=== PATIENT | female | born 1940 | race African-American/Black ===

== ENCOUNTER 2020-08-11 17:18 | Inpatient (IN) | payer MEDICARE ==
[2020-08-11] MEDS ORDERED: Diltiazem 125 MG/25 ML ONE (17:31)
[2020-08-11 18:00] LABS: #Lymphocytes 0.6 thou/uL (1.20-3.40); #Monocytes 0.5 thou/uL (0.11-0.59); #Neutrophils 4.8 thou/uL (1.40-6.50); %Basophils 0.3 % (0.0-1.0); %Eosinophils 0.2 % (0.0-10.0); %Lymphocytes 10.5 % (21.0-51.0); Hemoglobin 13.1 g/dL (12.0-16.0); Mean Corpuscular HGB CONC 32.9 g/dL (32.0-36.0); Mean Corpuscular Hemoglobin 31.2 pg (27.0-31.0); Mean Corpuscular Volume 94.8 fL (78.0-98.0); Mean Platelet Volume 8.8 fL (7.4-10.4); Platelet Count 231 thou/uL (130-400); RBC Distribution Width 14.6 % (11.5-14.5); Red Blood Cell (RBC) Count 4.21 mill/uL (4.20-5.40)
[2020-08-11 18:04] LABS: PTT 32.1 sec (22.9-36.1); Prothrombin Time 13.6 sec (12.0-14.7)
[2020-08-11 18:13] LABS: D-Dimer Test 10.26 *mcg/mL (0.27-0.43)
[2020-08-11] MEDS ORDERED: Adenosine 6 MG/2 ML VIAL ONE (18:14)
[2020-08-11 18:23] LABS: ALT (SGPT) 27 U/L (8-55); AST (SGOT) 61 U/L (5-34); Albumin 3.7 g/dL (3.4-4.8); Alkaline Phosphatase 62 U/L (40-110); Anion Gap 21 mmol/L (10-20); BUN (Urea Nitrogen) 28 mg/dL (9.8-20.1); Bilirubin, Total 0.7 mg/dL (0.2-1.2); Calc. Creatinine Clearance 0 mL/min (70-130); Calcium 9.1 mg/dL (7.8-10.44); Carbon Dioxide 23 mmol/L (23-31); Chloride 101 mmol/L (98-107); Glucose 97 mg/dL (83-110); Potassium 3.9 mmol/L (3.5-5.1); Protein, Total 7.7 g/dL (6.0-8.3); Sodium 141 mmol/L (136-145)
[2020-08-11 19:26] LABS: Bacteria/HPF 2+ HPF (None Seen); Bilirubin Negative (Negative); Blood, Urine 2+ (Negative); Clarity Turbid (Clear); Glucose, Urine (Dipstick) Normal (Negative); Ketone, Urine Negative (Negative); Leukocyte 250 Leu/uL (Negative); Nitrite Negative (Negative); Protein, Urine (Dipstick) 100 mg/dL (Neg-Trace); RBC/HPF 0-3 HPF (0-3); Specific Gravity, Urine 1.014 (1.002-1.036); Squamous Epithelial 0-3 HPF (0-3); WBC/HPF 21-50 HPF (0-3)
[2020-08-11] MEDS ORDERED: Enoxaparin Sodium 60 MG/0.6 ML SYRINGE ONE (19:27)
--- NOTE | 2020-08-11 19:28 | RAD ---
CHEST ONE VIEW: History: Fall Comparison: None FINDINGS: There is dense consolidation in the left lung base. There are few peripheral opacities throughout the lungs. Likely imposition of bowel between the right hemidiaphragm and the liver although slightly ob scured due to overlying defibrillator pad. No acute osseous abnormality. IMPRESSION: 1. Findings concerning for left basilar pneumonia or aspiration. 2. Peripheral opacities in the right upper lobe and left lower lobe could reflect scar or Covid 19 pn eumonia. Follow up recommended. POS: HOME
[2020-08-11] MEDS ORDERED: Amiodarone 150 MG, Admixture Fee 1 EACH in Dextrose 5% in Water 100 ML IVPB SCH (19:30)
[2020-08-11] MEDS ORDERED: Amiodarone 450 MG in Dextrose 5% in Water 250 ML IVPB SCH (19:45)
--- NOTE | 2020-08-11 20:05 | PDOC.HHP ---
Hospitalist HPI - History of Present Illness Generalized weakness, fall History of Present Illness: This is an 80-year-old female patient with a history of Asthma, glaucoma and remote cancer of left breast who was brought in by EMS on account of generalized weakness. Patient lives alone. About a week ago she was out to take her trash when a big yesenia of wind literally carried her and have been as a result of which she fell. She managed to drag herself back to her room but ever since she has been lying on the floor generally weak and unable to move around. She knows that she that her important stuff around her so she does not have to take long steps. She notes having pain in her left knee and right ankle from the fall. She has also had worsening cough productive however she does not bring it upnotes no cough. She denies any fever. She notes mild occasional headaches, no chest pain abdominal pain diarrhea constipation or dysuria. She does not recall hitting her head when she fell and does not have any focal weakness. Today her niece came to find her on the floor and activated EMS. EMS noted a blood pressure of 114/82, pulse of 173 and A. fib with RVR. She was brought into the ED for further evaluation. At presentation BP was 136/85, pulse was 161 temperature 99.7 saturating 94 on 2 L. She was noted to be in atrial flutter. Labs showed UA with 2+ bacteria 250 leukocytes 2+ blood with 21-50 WBC per high-power field, BMP showed potassium of 3.9, creatinine 1.88 with no baseline of reference. D-dimer was elevated at 10.26, CBC was essentially within normal limits. Chest x-ray showed findings concerning for left basilar pneumonia possibly aspiration. Also had peripheral opacities in the right upper lobe and left lower lobe which were concerning for possible COVID-19. She was started on Lovenox full dose due to concerns of PE. CTA was not done due to concerns of poor renal function. She also received Cardizem bolus and drip and also push of adenosine. Her rhythm converted to sinus tachycardia in the 100samiodarone was held. This was discussed with Dr. Christopher. Hospitalist team was consulted for admission. Hospitalist ROS - Review of Systems Constitutional: reports: malaise. denies: chills, sweats Respiratory: reports: cough, shortness of breath. denies: hemoptysis, SOB with excertion, pleuritic pain Cardiovascular: reports: palpitations. denies: chest pain, orthopnea, paroxysmal noc. dyspnea, edema Gastrointestinal: denies: nausea, vomiting, abdominal pain, diarrhea Genitourinary: denies: dysuria, frequency, incontinence, hematuria Musculoskeletal: reports: leg pain. denies: neck pain, shoulder pain, back pain, foot pain Skin: denies: rash, lesions Neurological: denies: weakness, numbness, incoordination, change in speech, confusion - Medication Medications: Medications: Spironolactone Allergies: Penicillin, streptomycin Hospitalist History - Past Medical History Other Medical History: Prediabetes, asthma - Past Surgical History Past Surgical History: reports: Hysterectomy - Family History Family History: reports: cardiac disorder - Social History Smoking Status: Former smoker Alcohol: reports: None Living Situation: Alone Activity level: independent ambulation - Exam General Appearance: awake alert Eye: PERRL, anicteric sclera ENT: normocephalic atraumatic Heart: RRR, no murmur, no gallops, no rubs Respiratory - other findings: Reduced air entry bilaterally. Occasional wheeze Extremities: no cyanosis, no clubbing, no edema Neurological: cranial nerve grossly intact, no focal deficits Psychiatric: normal affect, normal behavior, A&O x 3 Hospitalist Results - Labs Result Diagrams: 08/12/20 01:43 08/13/20 04:38 Lab results: WBC 6.0 thou/uL (4.8-10.8) 08/11/20 17:37 Hgb 13.1 g/dL (12.0-16.0) 08/11/20 17:37 Hct 39.9 % (36.0-47.0) 08/11/20 17:37 MCV 94.8 fL (78.0-98.0) 08/11/20 17:37 Plt Count 231 thou/uL (130-400) 08/11/20 17:37 Neutrophils % 80.0 % (42.0-75.0) H 08/11/20 17:37 Sodium 141 mmol/L (136-145) 08/11/20 17:37 Potassium 3.9 mmol/L (3.5-5.1) 08/11/20 17:37 Chloride 101 mmol/L (98-107) 08/11/20 17:37 Carbon Dioxide 23 mmol/L (23-31) 08/11/20 17:37 BUN 28 mg/dL (9.8-20.1) H 08/11/20 17:37 Creatinine 1.88 mg/dL (0.6-1.1) H 08/11/20 17:37 Glucose 97 mg/dL (83-110) 08/11/20 17:37 Calcium 9.1 mg/dL (7.8-10.44) 08/11/20 17:37 Total Bilirubin 0.7 mg/dL (0.2-1.2) 08/11/20 17:37 AST 61 U/L (5-34) H 08/11/20 17:37 ALT 27 U/L (8-55) 08/11/20 17:37 Alkaline Phosphatase 62 U/L (40-110) 08/11/20 17:37 B-Natriuretic Peptide Less than 10.0 pg/mL (0-100) 08/11/20 17:37 Serum Total Protein 7.7 g/dL (6.0-8.3) 08/11/20 17:37 Albumin 3.7 g/dL (3.4-4.8) 08/11/20 17:37 Urine Ketones Negative mg/dL (Negative) 08/11/20 19:11 Urine Blood 2+ (Negative) A 08/11/20 19:11 Urine Nitrite Negative (Negative) 08/11/20 19:11 Ur Leukocyte Esterase 250 Evelyn/uL (Negative) A 08/11/20 19:11 Urine RBC 0-3 HPF (0-3) 08/11/20 19:11 Urine WBC 21-50 HPF (0-3) A 08/11/20 19:11 Ur Squamous Epith Cells 0-3 HPF (0-3) 08/11/20 19:11 Urine Bacteria 2+ HPF (None Seen) A 08/11/20 19:11 Hospitalist H&P A/P - Plan Plan: This is an 80-year-old female with a history of diabetes mellitus, asthma who presents on account of generalized weakness after a fall a week ago. She has A. fib and a flutter on EKG and monitoring currently converted to sinus tachycardia with heart rate in the 90s 100s. She will be admitted for monitoring and further cardiology evaluation in the a.m. Atrial flutter/fibrillation Unclear etiology Possible concerns of PE and to rule out Covid pneumonia. Troponin elevated however this likely due to demand D-dimer significantly elevated Currently out of flutter and in sinus tachycardia after diltiazem bolus and dripwe will continue monitoring and holding of amiodarone for now. Cardiology evaluation in a.m. Bilateral pneumonia Concerns for Covid/aspiration Started on metronidazole and Levaquin for now. Has penicillin and streptomycin allergy Levaquin changed to doxycycline given her arrhythmias and age Follow-up on Covid results As needed oxygen Consults ID from Possible pulmonary embolism Started on therapeutic Lovenox Poor renal functionCTA could not be done We will do perfusion scan in a.m. Continue Lovenox for now. Type II NSTEMI Troponin elevated likely demand We will trend Covered on Lovenox for now Appreciate cardiology input. SATURNINO Creatinine elevated at 1.88 Unclear etiologypossible rhabdomyolysis Recheck CK IV fluids and possible prerenal Monitor BMP Fall This was mechanical no focal deficits and was a week ago. Fall precautions however PT evaluation in a.m. Left knee pain From traumatic fall X-ray ordered Right ankle pain X-ray ankle VT prophylaxistherapeutic on Lovenox CODE STATUSfull code Dispositionpending PT evaluation. She lives alone and may need placement
--- NOTE | 2020-08-11 21:10 | RAD ---
LEFT KNEE FOUR VIEWS: History: Fall Comparison: None FINDINGS: No significant joint effusion. Moderate chondrocalcinosis of the menisci. Mild vascular calcification s. IMPRESSION: Chondrocalcinosis and mild degenerative changes. No acute osseous abnormality. POS: HOME
--- NOTE | 2020-08-11 21:11 | RAD ---
RIGHT ANKLE THREE VIEWS: History: Fall Comparison: None FINDINGS: Likely old distal fibular injury which is well ossified and corticated. No acute displaced fracture o r malalignment. No osteochondral defect of the talar dome. IMPRESSION: No acute osseous abnormality. POS: HOME
[2020-08-11 21:22] LABS: Troponin I 0.134 ng/mL (< 0.028)
[2020-08-11] MEDS ORDERED: metroNIDAZOLE 500 MG in Premix Bag 1 BAG IVPB SCH (22:00)
[2020-08-11] MEDS ORDERED: Sodium Chloride 0.9% 1,000 ML IV SCH (22:00)
[2020-08-11 22:14] LABS: SARS-CoV-2 NAA Rapid Test DETECTED (NotDetected)
[2020-08-12] MEDS: Sodium Chloride 0.9% 1,000 ML IV SCH ×2 (01:18→09:52)
[2020-08-12 02:23] LABS: Band 8 % (5-11); Hemoglobin 12.1 g/dL (12.0-16.0); Lymphocytes 17 % (21-51); MDiff Complete? YES; Mean Corpuscular HGB CONC 33.3 g/dL (32.0-36.0); Mean Corpuscular Hemoglobin 31.4 pg (27.0-31.0); Mean Corpuscular Volume 94.4 fL (78.0-98.0); Mean Platelet Volume 8.6 fL (7.4-10.4); Monocytes 6 % (0-10); Myelocyte 1 % (0-0); Neutrophil 68 % (42-75); Platelet Count 201 thou/uL (130-400); RBC Distribution Width 14.4 % (11.5-14.5); Red Blood Cell (RBC) Count 3.84 mill/uL (4.20-5.40); White Blood Cell (WBC) Count 3.7 thou/uL (4.8-10.8)
[2020-08-12 02:25] VITALS: BMI 23.3
[2020-08-12 02:26] LABS: Anion Gap 17 mmol/L (10-20); BUN (Urea Nitrogen) 28 mg/dL (9.8-20.1); CK (CPK) 1436 U/L (29-168); Calc. Creatinine Clearance 29 mL/min (70-130); Calcium 8.7 mg/dL (7.8-10.44); Carbon Dioxide 22 mmol/L (23-31); Cardiac Risk 4.2 (Less than 4.5); Chloride 105 mmol/L (98-107); Cholesterol 130 mg/dl (< 200 Desired); Glucose 115 mg/dL (83-110); HDL Cholesterol 31 mg/dL (>60 Neg Risk); LDL Cholesterol, Calculated 75 mg/dL; Potassium 3.3 mmol/L (3.5-5.1); Sodium 141 mmol/L (136-145); Triglycerides 120 mg/dL (Less than 150); Troponin I 0.121 ng/mL (< 0.028)
[2020-08-12] MEDS ORDERED: metroNIDAZOLE 500 MG in Premix Bag 1 BAG IVPB SCH (03:00)
[2020-08-12 07:37] LABS: Troponin I 0.082 ng/mL (< 0.028)
[2020-08-12] MEDS: metroNIDAZOLE 500 MG in Premix Bag 1 BAG IVPB SCH ×2 (09:52→18:34)
[2020-08-12] MEDS: Acetaminophen 325 MG TAB PO PRN ×2 (10:15→16:15)
--- NOTE | 2020-08-12 11:56 | PDOC.HOSPP ---
- Subjective Encounter Date: 08/12/20 Encounter Time: 11:30 Subjective: Patient examined today. Denies any new complaints. Would like to eat as ED made her NPO pending cardiology consult. - Objective Vital Signs & Weight: Vital Signs (12 hours) Temp Pulse Resp BP BP Pulse Ox 08/12/20 07:47 98 08/12/20 05:00 98.6 F 95 24 H 126/78 98 08/12/20 04:41 98.6 F 95 24 H 126/78 98 Weight Admit Weight 65.544 kg Weight 65.544 kg Result Diagrams: 08/12/20 01:43 08/12/20 01:43 Hospitalist ROS - Review of Systems Constitutional: reports: chills, malaise Eyes: denies: pain, vision change, conjunctivae inflammation, eyelid inflammation, redness, other ENT: denies: ear pain, ear discharge, nose pain, nose discharge, nose congestion, mouth pain, mouth swelling, throat pain, throat swelling, other Respiratory: reports: cough, shortness of breath, SOB with excertion Cardiovascular: denies: chest pain, palpitations, orthopnea, paroxysmal noc. dyspnea, edema, light headedness, other Gastrointestinal: denies: nausea, vomiting, abdominal pain, diarrhea, constipation, melena, hematochezia, other Genitourinary: denies: dysuria, frequency, incontinence, hematuria, retention, other Musculoskeletal: denies: neck pain, shoulder pain, arm pain, back pain, hand pain, leg pain, foot pain, other Skin: denies: rash, lesions, karishma, bruising, other Neurological: reports: weakness - Medication Medications: Active Medications Generic Name Dose Route Start Last Admin Trade Name Freq PRN Reason Stop Dose Admin Acetaminophen 650 mg 08/11/20 20:19 08/12/20 10:15 Acetaminophen 325 Mg Tab PO 650 mg Q4H PRN Administration Headache/Fever/Mild Pain (1-3) Sodium Chloride 1,000 mls @ 100 mls/hr 08/11/20 23:15 08/12/20 09:52 Normal Saline 0.9% IV 1,000 mls .Q10H KEISHA Administration Metronidazole 500 mg/ Device 100 mls @ 100 mls/hr 08/12/20 10:00 08/12/20 09:52 IVPB 100 mls 0200,1000,1800 KEISHA Administration - Exam General Appearance: awake alert, ill appearing Eye: PERRL, anicteric sclera ENT: normocephalic atraumatic, dry oral mucosa Neck: supple, no lymphadenopathy Heart: normal peripheral pulses Respiratory: normal chest expansion Gastrointestinal: soft, non-tender Extremities: no edema Skin: normal turgor Neurological - other findings: generalized weakness/fatigue Musculoskeletal: generalized weakness Psychiatric: normal affect, A&O x 3 Hosp A/P (1) Pneumonia due to COVID-19 virus Code(s): U07.1 - COVID-19; J12.89 - OTHER VIRAL PNEUMONIA Status: Acute (2) Atrial fibrillation/flutter Code(s): I48.91 - UNSPECIFIED ATRIAL FIBRILLATION; I48.92 - UNSPECIFIED ATRIAL FLUTTER Status: Acute (3) D-dimer, elevated Code(s): R79.89 - OTHER SPECIFIED ABNORMAL FINDINGS OF BLOOD CHEMISTRY Status: Acute (4) NSTEMI (non-ST elevated myocardial infarction) Code(s): I21.4 - NON-ST ELEVATION (NSTEMI) MYOCARDIAL INFARCTION Status: Acute (5) SATURNINO (acute kidney injury) Code(s): N17.9 - ACUTE KIDNEY FAILURE, UNSPECIFIED Status: Acute (6) Rhabdomyolysis Code(s): M62.82 - RHABDOMYOLYSIS Status: Acute (7) Fall Code(s): W19.XXXA - UNSPECIFIED FALL, INITIAL ENCOUNTER Status: Acute - Plan continue antibiotics, PT/OT, sr. social media & mobile manager, DVT proph w/lovenox, GI proph #Covid Pneumonia Continue Doxy and Flagyl O2 as needed to keep O2 Sats above 92 ID consult added #Aflutter/Afib + NSTEMI Dr. Brown called patient today Orders placed Await report Patient converted to sinus tachycardia last night #Elevated DDimer in the context of Covid pneumonia Was given Lovenox last night (1mg/kg) Started on Eliquis today Was called from Nuc Med who stated patient would not get much benefit from Lung Perfusion test Will continue Eliquis and monitor # SATURNINO and elevated CK IV fluids and will recheck CK Hold nephrotoxic meds DVT prevention with eliquis; PUD prevention with pepcid. Case will be discussed with Dr. Kaplan- attending
--- NOTE | 2020-08-12 11:59 | CON ---
DATE OF CONSULTATION: HISTORY OF PRESENT ILLNESS: Patient is an 80-year-old woman who had a fall and was noted to be in a rapid irregular heart rhythm. The patient has no previous cardiac history. The patient was in usual state of health when she suddenly got weak, and had a fall. She presented to emergency room and noted to have a rapid irregular heart rhythm. The patient denied having any palpitations. The patient denies having any chest pain or dyspnea. The patient states she was extremely weak. The patient denied any fevers or chills. PAST MEDICAL HISTORY: 1. Breast carcinoma. 2. Diabetes mellitus. 3. Asthma. 4. Prediabetes. PAST SURGICAL HISTORY: Hysterectomy. SOCIAL HISTORY: Nonsmoker. ALLERGIES: PENICILLIN AND STREPTOMYCIN. MEDICATIONS: 1. Synthroid 50 mcg daily. 2. Metformin 500 daily. 3. Spironolactone 25 daily. FAMILY HISTORY: There is a positive family history of coronary artery disease. REVIEW OF SYSTEMS: Ten-point system otherwise unremarkable. No history of easy bruising or bleeding. PHYSICAL EXAMINATION: VITAL SIGNS: Blood pressure was 126/78, heart rate was 98. Physical examination was deferred due to COVID. LABORATORY RESULTS: White blood cell count 3.7, hemoglobin 12.1, hematocrit 36.2, platelets are 201. Sodium was 141, potassium 3.3, chloride 105, bicarbonate 22, BUN 28, creatinine 1.56. Troponin was 0.12. CPK was 1436. EKG revealed atrial flutter with 2:1 conduction. EKG revealed sinus tachycardia, otherwise normal ECG. IMPRESSION AND PLAN: 1. New-onset atrial flutter. 2. Coronavirus disease positive. 3. Diabetes mellitus. 4. Asthma. 5. Rhabdomyolysis. The patient presents after a prolonged fall and developed rhabdomyolysis. She was noted to be in rapid atrial flutter. The patient converted to sinus rhythm. From a cardiac standpoint with her history of asthma, Iwould recommend Cardizem . The patient has a CHADS-VASc score of 4. She needs to be on long-term anticoagulation. We will start low-dose Eliquis. We will follow this patient with you through her hospitalization. Job ID: [id number] MTDD
[2020-08-12] MEDS ORDERED: Dexamethasone 4 MG TAB PO SCH (15:15)
[2020-08-12] MEDS: Famotidine 20 MG TAB PO SCH (20:50)
[2020-08-12] MEDS: Apixaban 2.5 MG TAB PO SCH (20:50)
--- NOTE | 2020-08-12 20:56 | CON ---
DATE OF CONSULTATION: 08/12/2020 REASON FOR CONSULTATION: COVID-19. HISTORY OF PRESENT ILLNESS: An 80-year-old who has a history of asthma and breast cancer in remission, who reportedly had been having a lot of coughing for the past 2 or 3 weeks that she ascribed to a "cold" [place] the trash can out and because of the wind, she fell and the trash can fell on top of her and she dragged herself back into the house and reportedly could not get up and stayed there for 2 weeks, which I find hard to believe. She was drinking from vials of water that she has around the house and I do not know what she was eating, but eventually her niece came to visit and called the EMS and brought her to the emergency room. In the emergency room, they reported that she was having dizziness and palpitations and tachycardia. The history is a bit different than what she just told me compared with what the ER physician documented. So initial findings are blood pressure 130/80, heart rate 160 initially and then 100, temperature 99.7, O2 saturation 94%. The exam was not particularly remarkable except for tachycardia. The lung exam was described as normal. The EKG showed atrial flutter with variable AV block and tachycardia. Other findings, white cell count 6.0, hemoglobin 13, platelets 231, 80% neutrophils. INR 1.0. Sodium 141, creatinine 1.8, AST 61. CK was 1600. Troponin 0.134. Albumin 3.7. TSH 3.5. Urinalysis with 21 to 50 wbc's. SARS-CoV-2 PCR positive. Chest x-ray with bilateral infiltrates. The patient has been given Decadron, Eliquis, doxycycline, and Flagyl. Currently, Ms. Serrano is a little bit apprehensive, but have been told to have COVID. No headaches, still coughing intermittently. No dyspnea. No abdominal pain or diarrhea. No genitourinary symptoms. No neurological symptoms. PAST MEDICAL HISTORY: Asthma, breast cancer in remission. PAST SURGICAL HISTORY: Hysterectomy, breast cancer surgery. MEDICATIONS: 1. Eliquis. 2. Decadron. 3. Doxycycline. 4. Flagyl. FAMILY HISTORY: Noncontributory. ALLERGIES: PENICILLIN, STREPTOMYCIN. PHYSICAL EXAMINATION: VITAL SIGNS: Temperature max 98.6, blood pressure 120/70, heart rate 95, breathing 24 times a minute, O2 saturation 98% on 2 L. I decreased or turned off her oxygen supplementation and she kept her O2 saturations anywhere from 95% to 100% despite no oxygen supplementation, so it is not clear to me that she actually requires O2 supplementation. ASSESSMENT: Asthma; breast cancer in remission; COVID-19 pneumonia, [id number]. It is not very easy to precisely estimate duration of illness, but it looks like at least 2 weeks if not longer. She is not eligible for remdesivir. Continue Decadron. She has mild illness thus far and we will monitor her CRP and ferritin. Looks like she had a [id number] elevation myocardial infarction as well probably from demand ischemia. Job ID: [id number]
[2020-08-12] MEDS ORDERED: Enoxaparin Sodium 80 MG/0.8 ML SYRINGE SC SCH (21:00)
[2020-08-13] MEDS: metroNIDAZOLE 500 MG in Premix Bag 1 BAG IVPB SCH ×2 (01:04→08:36)
[2020-08-13] MEDS: Sodium Chloride 0.9% 1,000 ML IV SCH ×3 (03:28→23:52)
[2020-08-13 05:35] LABS: Anion Gap 11 mmol/L (10-20); BUN (Urea Nitrogen) 17 mg/dL (9.8-20.1); CK (CPK) 491 U/L (29-168); Calc. Creatinine Clearance 39 mL/min (70-130); Calcium 8.2 mg/dL (7.8-10.44); Carbon Dioxide 24 mmol/L (23-31); Chloride 111 mmol/L (98-107); Glucose 153 mg/dL (83-110); Potassium 3.7 mmol/L (3.5-5.1); Sodium 142 mmol/L (136-145)
[2020-08-13] MEDS: Anastrozole 1 MG TAB PO SCH (08:37)
[2020-08-13] MEDS: Dexamethasone 4 MG TAB PO SCH (08:37)
[2020-08-13] MEDS: Famotidine 20 MG TAB PO SCH ×2 (08:37→20:43)
[2020-08-13] MEDS: Apixaban 2.5 MG TAB PO SCH ×2 (08:37→20:43)
[2020-08-13] MEDS ORDERED: Non-Formulary Item 1 EACH (Levothyroxine Sodium [Levothyroxine] 50 MCG Capsule) PO SCH ×2 (09:00)
--- NOTE | 2020-08-13 11:42 | PDOC.HOSPP ---
- Subjective Encounter Date: 08/13/20 Encounter Time: 11:41 Subjective: Ms. Serrano is an 80-year-old female who is hospitalized with COVID-19 pneumonia. It is unclear the timeline in terms of her Covid diagnosis. Reportedly she was found on the floor by a niece who summoned EMS and she was brought here. She is on O2 via nasal cannula and seems to be doing reasonably okay. She does have this intractable cough but no significant sputum. She is on steroids and vitamin C and vitamin D's. She has evidence of a urinary tract infection with urine culture growing gram-negative rods. She is appropriately on IV antibiotics. - Objective Vital Signs & Weight: Vital Signs (12 hours) Temp Pulse Resp BP Pulse Ox 08/13/20 08:47 98.1 F 92 18 117/66 99 08/13/20 03:28 97.5 F L 76 18 128/79 100 Weight Admit Weight 144 lb 8 oz Weight 144 lb 8 oz I&O: 08/12/20 08/13/20 08/14/20 06:59 06:59 06:59 Intake Total 3760 Output Total 1500 Balance 2260 Result Diagrams: 08/12/20 01:43 08/13/20 04:38 Radiology Reviewed by me: Yes EKG Reviewed by me: Yes Hospitalist ROS - Review of Systems Constitutional: reports: weakness, malaise Respiratory: reports: cough, dry Gastrointestinal: reports: nausea - Medication Medications: Active Medications Generic Name Dose Route Start Last Admin Trade Name Freq PRN Reason Stop Dose Admin Acetaminophen 650 mg 08/11/20 20:19 08/12/20 16:15 Acetaminophen 325 Mg Tab PO 650 mg Q4H PRN Administration Headache/Fever/Mild Pain (1-3) Anastrozole 1 mg 08/13/20 09:00 08/13/20 08:37 Anastrozole 1 Mg Tab PO 1 mg DAILY KEISHA Administration Apixaban 2.5 mg 08/12/20 21:00 08/13/20 08:37 Apixaban 2.5 Mg Tab PO 2.5 mg BID KEISHA Administration Dexamethasone 6 mg 08/13/20 08:00 08/13/20 08:37 Dexamethasone 4 Mg Tab PO 6 mg QAM-WM KEISHA Administration Diltiazem HCl 120 mg 08/12/20 12:00 08/12/20 13:08 Diltiazem Cd 120 Mg Cap PO 120 mg 1200 KEISHA Administration Famotidine 20 mg 08/12/20 21:00 08/13/20 08:37 Famotidine 20 Mg Tab PO 20 mg BID KEISHA Administration Sodium Chloride 1,000 mls @ 100 mls/hr 08/11/20 23:15 08/13/20 03:28 Normal Saline 0.9% IV 1,000 mls .Q10H KEISHA Administration Doxycycline Hyclate 100 mg/ 100 mls @ 100 mls/hr 08/12/20 14:00 08/13/20 01:04 Sodium Chloride IVPB 100 mls 0200,1400 KEISHA Administration Metronidazole 500 mg/ Device 100 mls @ 100 mls/hr 08/12/20 10:00 08/13/20 08:36 IVPB 100 mls 0200,1000,1800 KEISHA Administration Sodium Chloride 10 ml 08/12/20 21:00 08/13/20 08:38 Flush - Normal Saline 10 Ml Syringe IVF 10 ml Q12HR KEISHA Administration - Exam General Appearance: awake alert, ill appearing Eye: PERRL, anicteric sclera ENT: normocephalic atraumatic, no oropharyngeal lesions, moist mucosa Neck: supple, symmetric, no JVD, no thyromegaly, no lymphadenopathy Heart: RRR, no murmur, no gallops, no rubs, normal peripheral pulses Respiratory: CTAB, no wheezes, no rales, no ronchi Gastrointestinal: soft, non-tender, non-distended, normal bowel sounds Neurological: cranial nerve grossly intact Musculoskeletal: normal tone, normal strength Psychiatric: normal affect, normal behavior, A&O x 3 Hosp A/P (1) UTI (urinary tract infection) Status: Acute (2) Pneumonia due to COVID-19 virus Code(s): U07.1 - COVID-19; J12.89 - OTHER VIRAL PNEUMONIA Status: Acute (3) Atrial fibrillation/flutter Code(s): I48.91 - UNSPECIFIED ATRIAL FIBRILLATION; I48.92 - UNSPECIFIED ATRIAL FLUTTER Status: Acute - Plan #1. Acute COVID-19 pneumonia. She is on supportive care with steroids and vitamin C. She is not a candidate for remdesivir and convalescent plasma. 2. Acute hypoxic respiratory failure Continue O2 via nasal cannula. 3. UTI. Urine cultures growing gram-negative rods. I am going to switch her antibiotic to Azactam which would also cover for the pneumonia. 4. Atrial flutter. Cardiology evaluation is appreciated. She is on anticoagulation and rate control medications.
[2020-08-13] MEDS: Aztreonam 1 GM in Sodium Chloride 0.9% 100 ML IVPB SCH ×2 (11:59→23:52)
[2020-08-13] MEDS: Acetaminophen 325 MG TAB PO PRN (19:19)
[2020-08-14 05:25] LABS: #Lymphocytes 0.6 thou/uL (1.20-3.40); #Monocytes 0.4 thou/uL (0.11-0.59); #Neutrophils 5.6 thou/uL (1.40-6.50); %Basophils 0.4 % (0.0-1.0); %Eosinophils 0.1 % (0.0-10.0); %Lymphocytes 8.5 % (21.0-51.0); %Monocytes 5.4 % (0.0-10.0); %Neutrophils 85.6 % (42.0-75.0); Hemoglobin 10.4 g/dL (12.0-16.0); Mean Corpuscular HGB CONC 32.3 g/dL (32.0-36.0); Mean Platelet Volume 8.3 fL (7.4-10.4); Platelet Count 276 thou/uL (130-400); RBC Distribution Width 14.4 % (11.5-14.5); Red Blood Cell (RBC) Count 3.36 mill/uL (4.20-5.40); White Blood Cell (WBC) Count 6.6 thou/uL (4.8-10.8)
[2020-08-14] MEDS: Levothyroxine Sodium 50 MCG TAB PO SCH (05:41)
[2020-08-14 05:48] LABS: Anion Gap 13 mmol/L (10-20); BUN (Urea Nitrogen) 15 mg/dL (9.8-20.1); Calc. Creatinine Clearance 43 mL/min (70-130); Calcium 7.9 mg/dL (7.8-10.44); Carbon Dioxide 21 mmol/L (23-31); Chloride 112 mmol/L (98-107); Glucose 120 mg/dL (83-110); Potassium 3.3 mmol/L (3.5-5.1); Sodium 143 mmol/L (136-145)
[2020-08-14] MEDS: Famotidine 20 MG TAB PO SCH ×2 (08:21→21:27)
[2020-08-14] MEDS: Dexamethasone 4 MG TAB PO SCH (08:21)
[2020-08-14] MEDS: Anastrozole 1 MG TAB PO SCH (08:21)
[2020-08-14] MEDS: Apixaban 2.5 MG TAB PO SCH ×2 (08:21→21:27)
[2020-08-14] MEDS: Sodium Chloride 0.9% 1,000 ML IV SCH ×2 (11:07→21:25)
[2020-08-14] MEDS: Aztreonam 1 GM in Sodium Chloride 0.9% 100 ML IVPB SCH ×2 (11:07→23:01)
--- NOTE | 2020-08-14 14:48 | PDOC.HOSPP ---
- Subjective Encounter Date: 08/14/20 Encounter Time: 14:46 Subjective: Ms. Serrano is being treated for COVID-19 pneumonia and urinary tract infection. Her urine culture grew out E. coli. She is currently on aztreonam. She is on Decadron. She is not a candidate for remdesivir. We appreciate ID services. - Objective Vital Signs & Weight: Vital Signs (12 hours) Temp Pulse Resp BP Pulse Ox 08/14/20 10:55 97.7 F 91 18 119/66 96 08/14/20 08:00 98.2 F 94 20 125/67 96 08/14/20 04:10 98.0 F 89 18 112/58 L 100 Weight Admit Weight 144 lb 8 oz Weight 144 lb 8 oz I&O: 08/13/20 08/14/20 08/15/20 06:59 06:59 06:59 Intake Total 3760 3390 Output Total 1500 400 Balance 2260 2990 Result Diagrams: 08/14/20 05:03 08/14/20 05:03 Radiology Reviewed by me: Yes EKG Reviewed by me: Yes Hospitalist ROS - Review of Systems Constitutional: reports: weakness Respiratory: reports: cough, shortness of breath, SOB with excertion Gastrointestinal: reports: nausea, vomiting Neurological: reports: weakness, numbness - Medication Medications: Active Medications Generic Name Dose Route Start Last Admin Trade Name Freq PRN Reason Stop Dose Admin Acetaminophen 650 mg 08/11/20 20:19 08/13/20 19:19 Acetaminophen 325 Mg Tab PO 650 mg Q4H PRN Administration Headache/Fever/Mild Pain (1-3) Anastrozole 1 mg 08/13/20 09:00 08/14/20 08:21 Anastrozole 1 Mg Tab PO 1 mg DAILY KEISHA Administration Apixaban 2.5 mg 08/12/20 21:00 08/14/20 08:21 Apixaban 2.5 Mg Tab PO 2.5 mg BID KEISHA Administration Dexamethasone 6 mg 08/13/20 08:00 08/14/20 08:21 Dexamethasone 4 Mg Tab PO 6 mg QAM-WM KEISHA Administration Diltiazem HCl 180 mg 08/14/20 12:00 08/14/20 11:07 Diltiazem Hcl Cd 180 Mg Capsule PO 180 mg 1200 KEISHA Administration Famotidine 20 mg 08/12/20 21:00 08/14/20 08:21 Famotidine 20 Mg Tab PO 20 mg BID KEISHA Administration Sodium Chloride 1,000 mls @ 100 mls/hr 08/11/20 23:15 08/14/20 11:07 Normal Saline 0.9% IV 1,000 mls .Q10H KEISHA Administration Aztreonam 1 gm/ Sodium 100 mls @ 100 mls/hr 08/13/20 12:00 08/14/20 11:07 Chloride IVPB 100 mls 0000,1200 KEISHA Administration Levothyroxine Sodium 50 mcg 08/14/20 06:00 08/14/20 05:41 Levothyroxine Sodium 50 Mcg Tab PO 50 mcg 0600 KEISHA Administration Sodium Chloride 10 ml 08/12/20 21:00 08/14/20 08:21 Flush - Normal Saline 10 Ml Syringe IVF 10 ml Q12HR KEISHA Administration - Exam General Appearance: NAD, awake alert, ill appearing Eye: PERRL, anicteric sclera ENT: normocephalic atraumatic, no oropharyngeal lesions Neck: supple, symmetric, no JVD Heart: RRR, no murmur, no gallops, no rubs, normal peripheral pulses Respiratory: CTAB, no wheezes, no rales, no ronchi Gastrointestinal: soft, non-tender, non-distended, normal bowel sounds Neurological: cranial nerve grossly intact, normal sensation to touch Musculoskeletal: normal tone, normal strength, no muscle wasting Psychiatric: normal affect, normal behavior, A&O x 3, oriented to person Hosp A/P (1) UTI (urinary tract infection) Status: Acute Qualifiers: Urinary tract infection type: acute cystitis Hematuria presence: with hematuria Qualified Code(s): N30.01 - Acute cystitis with hematuria Plan: Urine cultures growing E. coli. Continue antibiotic as above. (2) Pneumonia due to COVID-19 virus Code(s): U07.1 - COVID-19; J12.89 - OTHER VIRAL PNEUMONIA Status: Acute (3) Atrial fibrillation/flutter Code(s): I48.91 - UNSPECIFIED ATRIAL FIBRILLATION; I48.92 - UNSPECIFIED ATRIAL FLUTTER Status: Acute Plan: She is on rate control and anticoagulant. - Plan PT/OT, guest services lead, respiratory therapy, incentive spirometry Consults: other #1. Acute COVID-19 pneumonia. She is on supportive care with steroids and vitamin C. She is not a candidate for remdesivir and convalescent plasma. 2. Acute hypoxic respiratory failure Continue O2 via nasal cannula. 3. UTI. Urine cultures growing gram-negative rods. I am going to switch her antibiotic to Azactam which would also cover for the pn eumonia. 4. Atrial flutter. Cardiology evaluation is appreciated. She is on anticoagulation and rate control medications.
[2020-08-15] MEDS: Guaifenesin DM 100-10/5 ML UDCUP PO PRN ×3 (00:25→20:08)
[2020-08-15] MEDS: Levothyroxine Sodium 50 MCG TAB PO SCH (05:01)
[2020-08-15 06:08] LABS: #Lymphocytes 0.5 thou/uL (1.20-3.40); #Monocytes 0.3 thou/uL (0.11-0.59); %Eosinophils 0.1 % (0.0-10.0); %Lymphocytes 8.1 % (21.0-51.0); %Monocytes 5.4 % (0.0-10.0); %Neutrophils 86.3 % (42.0-75.0); Mean Corpuscular HGB CONC 32.3 g/dL (32.0-36.0); Mean Corpuscular Hemoglobin 30.5 pg (27.0-31.0); Mean Corpuscular Volume 94.5 fL (78.0-98.0); Mean Platelet Volume 8.3 fL (7.4-10.4); Platelet Count 311 thou/uL (130-400); RBC Distribution Width 14.4 % (11.5-14.5); Red Blood Cell (RBC) Count 3.29 mill/uL (4.20-5.40); White Blood Cell (WBC) Count 5.7 thou/uL (4.8-10.8)
[2020-08-15 06:41] LABS: BUN (Urea Nitrogen) 16 mg/dL (9.8-20.1); Calc. Creatinine Clearance 43 mL/min (70-130); Calcium 7.7 mg/dL (7.8-10.44); Chloride 112 mmol/L (98-107); Glucose 131 mg/dL (83-110); Potassium 3.4 mmol/L (3.5-5.1); Sodium 145 mmol/L (136-145)
[2020-08-15 07:17] LABS: Anion Gap 15 mmol/L (10-20); Carbon Dioxide 19 mmol/L (23-31)
[2020-08-15] MEDS: Anastrozole 1 MG TAB PO SCH (09:32)
[2020-08-15] MEDS: Dexamethasone 4 MG TAB PO SCH (09:32)
[2020-08-15] MEDS: Apixaban 2.5 MG TAB PO SCH ×2 (09:33→19:45)
[2020-08-15] MEDS: Famotidine 20 MG TAB PO SCH ×2 (09:33→19:45)
[2020-08-15] MEDS: Aztreonam 1 GM in Sodium Chloride 0.9% 100 ML IVPB SCH ×2 (11:07→23:17)
[2020-08-15] MEDS: Sodium Chloride 0.9% 1,000 ML IV SCH ×2 (11:11→19:36)
--- NOTE | 2020-08-15 16:17 | PDOC.HOSPP ---
- Subjective Encounter Date: 08/15/20 Encounter Time: 16:16 Subjective: Patient seen and evaluated. 80-year-old admitted to the hospital for Covid pneumonia. In addition she also has urinary tract infection. She is tolerating her treatment well. Remains very debilitated but PT is getting her out of bed. - Objective Vital Signs & Weight: Vital Signs (12 hours) Temp Pulse Resp BP Pulse Ox Pulse Ox Pulse Ox 08/15/20 13:38 96 98 08/15/20 12:00 97.9 F 91 20 118/75 94 L 08/15/20 09:45 98.3 F 90 22 H 103/60 99 08/15/20 08:00 99 Weight Admit Weight 144 lb 8 oz Weight 144 lb 8 oz I&O: 08/14/20 08/15/20 08/16/20 06:59 06:59 06:59 Intake Total 3390 2280 300 Output Total 400 1000 Balance 2990 1280 300 Result Diagrams: 08/15/20 05:18 08/15/20 05:18 Hospitalist ROS - Review of Systems Respiratory: reports: shortness of breath, SOB with excertion Cardiovascular: reports: chest pain Neurological: reports: weakness, numbness - Medication Medications: Active Medications Generic Name Dose Route Start Last Admin Trade Name Freq PRN Reason Stop Dose Admin Acetaminophen 650 mg 08/11/20 20:19 08/13/20 19:19 Acetaminophen 325 Mg Tab PO 650 mg Q4H PRN Administration Headache/Fever/Mild Pain (1-3) Anastrozole 1 mg 08/13/20 09:00 08/15/20 09:32 Anastrozole 1 Mg Tab PO 1 mg DAILY KEISHA Administration Apixaban 2.5 mg 08/12/20 21:00 08/15/20 09:33 Apixaban 2.5 Mg Tab PO 2.5 mg BID KEISHA Administration Dexamethasone 6 mg 08/13/20 08:00 08/15/20 09:32 Dexamethasone 4 Mg Tab PO 6 mg QAM-WM KEISHA Administration Diltiazem HCl 180 mg 08/14/20 12:00 08/15/20 11:08 Diltiazem Hcl Cd 180 Mg Capsule PO 180 mg 1200 KEISHA Administration Famotidine 20 mg 08/12/20 21:00 08/15/20 09:33 Famotidine 20 Mg Tab PO 20 mg BID KEISHA Administration Guaifenesin/Dextromethorphan 15 ml 08/14/20 23:21 08/15/20 05:01 Guaifenesin Dm 100-10/5 Ml Udcup PO 15 ml Q4H PRN Administration Cough Sodium Chloride 1,000 mls @ 100 mls/hr 08/11/20 23:15 08/15/20 11:11 Normal Saline 0.9% IV 1,000 mls .Q10H KEISHA Administration Aztreonam 1 gm/ Sodium 100 mls @ 100 mls/hr 08/13/20 12:00 08/15/20 11:07 Chloride IVPB 100 mls 0000,1200 KEISHA Administration Levothyroxine Sodium 50 mcg 08/14/20 06:00 08/15/20 05:01 Levothyroxine Sodium 50 Mcg Tab PO 50 mcg 0600 KEISHA Administration Sodium Chloride 10 ml 08/12/20 21:00 08/15/20 09:33 Flush - Normal Saline 10 Ml Syringe IVF Not Given Q12HR KEISHA - Exam General Appearance: awake alert, ill appearing Eye: PERRL ENT: normocephalic atraumatic, no oropharyngeal lesions Neck: supple, symmetric Heart: RRR, no murmur, no gallops, no rubs Respiratory: CTAB, no wheezes, no rales, no ronchi Gastrointestinal: soft, non-tender, non-distended, normal bowel sounds Neurological: cranial nerve grossly intact, normal sensation to touch Psychiatric: normal affect, normal behavior, A&O x 3 Hosp A/P (1) UTI (urinary tract infection) Status: Acute Qualifiers: Urinary tract infection type: acute cystitis Hematuria presence: with he maturia Qualified Code(s): N30.01 - Acute cystitis with hematuria (2) Pneumonia due to COVID-19 virus Code(s): U07.1 - COVID-19; J12.89 - OTHER VIRAL PNEUMONIA Status: Acute (3) Atrial fibrillation/flutter Code(s): I48.91 - UNSPECIFIED ATRIAL FIBRILLATION; I48.92 - UNSPECIFIED ATRIAL FLUTTER Status: Acute - Plan old records reviewed/req, continue antibiotics, PT/OT, speech therapy, respiratory therapy, incentive spirometry, out of bed/ambulate #1. Acute COVID-19 pneumonia. She is on supportive care with steroids and vitamin C. She is not a candidate for remdesivir and convalescent plasma. 2. Acute hypoxic respiratory failure Continue O2 via nasal cannula. 3. UTI. Urine cultures growing gram-negative rods. I am going to switch her antibiotic to Azactam which would also cover for the pneumonia. 4. Atrial flutter. Cardiology evaluation is appreciated. She is on anticoagulation and rate control medications.
[2020-08-15] MEDS: Acetaminophen 325 MG TAB PO PRN (20:08)
[2020-08-16] MEDS: Acetaminophen 325 MG TAB PO PRN ×2 (00:42→20:12)
[2020-08-16] MEDS: Sodium Chloride 0.9% 1,000 ML IV SCH ×2 (05:05→19:08)
[2020-08-16] MEDS: Levothyroxine Sodium 50 MCG TAB PO SCH (05:05)
[2020-08-16 05:19] LABS: #Eosinphils 0.1 thou/uL (0.0-0.7); #Lymphocytes 0.6 thou/uL (1.20-3.40); #Monocytes 0.3 thou/uL (0.11-0.59); %Eosinophils 1.2 % (0.0-10.0); %Lymphocytes 12.5 % (21.0-51.0); %Monocytes 5.8 % (0.0-10.0); %Neutrophils 80.5 % (42.0-75.0); Hemoglobin 10.2 g/dL (12.0-16.0); Mean Corpuscular HGB CONC 32.1 g/dL (32.0-36.0); Mean Corpuscular Hemoglobin 30.4 pg (27.0-31.0); Mean Corpuscular Volume 94.8 fL (78.0-98.0); Mean Platelet Volume 8.1 fL (7.4-10.4); Platelet Count 315 thou/uL (130-400); RBC Distribution Width 14.6 % (11.5-14.5); Red Blood Cell (RBC) Count 3.34 mill/uL (4.20-5.40)
[2020-08-16 05:36] LABS: Anion Gap 13 mmol/L (10-20); BUN (Urea Nitrogen) 20 mg/dL (9.8-20.1); Calc. Creatinine Clearance 42 mL/min (70-130); Carbon Dioxide 22 mmol/L (23-31); Chloride 110 mmol/L (98-107); Glucose 120 mg/dL (83-110); Potassium 3.3 mmol/L (3.5-5.1); Sodium 142 mmol/L (136-145)
[2020-08-16] MEDS: Famotidine 20 MG TAB PO SCH (09:29)
[2020-08-16] MEDS: Apixaban 2.5 MG TAB PO SCH ×2 (09:29→20:12)
[2020-08-16] MEDS: Dexamethasone 4 MG TAB PO SCH (09:29)
[2020-08-16] MEDS: Anastrozole 1 MG TAB PO SCH (09:29)
[2020-08-16] MEDS: Aztreonam 1 GM in Sodium Chloride 0.9% 100 ML IVPB SCH (11:08)
[2020-08-16] MEDS: Guaifenesin DM 100-10/5 ML UDCUP PO PRN (11:53)
--- NOTE | 2020-08-16 14:07 | PDOC.HOSPP ---
- Subjective Encounter Date: 08/16/20 Encounter Time: 14:04 Subjective: Ms. Serrano is an 80-year-old woman who was admitted to the hospital with COVID- 19 virus pneumonia. She is originally from the [facility] and was actually here to bury her aunt who from complications of Covid. She is requiring O2 via nasal cannula and seems to be doing reasonably well. She does still get dyspneic with conversations. She still has cough as well. She has been seen by infectious disease services during this hospitalization. They recommend supportive care for now. It appears that she has been positive at least a couple weeks now. It is unclear the duration however. Other pertinent findings include atrial flutter that was discovered during this hospitalization. She saw the lead data architect briefly who recommended anticoagulation and Cardizem. She is currently on both and has since remained in sinus rhythm. She is receiving Azactam for urinary tract infection and suspected pneumonia seen on the chest x-ray. She is allergic to penicillin and she said that her allergies were anaphylaxis. Consider de-escalating antibiotic as she seems to be doing really well. - Objective Vital Signs & Weight: Vital Signs (12 hours) Temp Pulse Pulse Pulse Resp BP BP 08/16/20 11:23 98.2 F 74 24 H 08/16/20 11:19 90 80 139/99 H 129/89 08/16/20 09:40 98.1 F 87 24 H 08/16/20 04:10 98.0 F 75 20 BP Pulse Ox 08/16/20 11:23 133/72 99 08/16/20 11:19 08/16/20 09:40 126/66 100 08/16/20 04:10 125/65 100 Weight Admit Weight 144 lb 8 oz Weight 144 lb 8 oz I&O: 08/15/20 08/16/20 08/17/20 06:59 06:59 06:59 Intake Total 2280 980 200 Output Total 1000 1150 Balance 1280 -170 200 Result Diagrams: 08/16/20 05:02 08/16/20 05:02 Radiology Reviewed by me: Yes EKG Reviewed by me: Yes Hospitalist ROS - Review of Systems Constitutional: reports: weakness, malaise Respiratory: reports: shortness of breath, SOB with excertion, wheezing Gastrointestinal: reports: nausea - Medication Medications: Active Medications Generic Name Dose Route Start Last Admin Trade Name Freq PRN Reason Stop Dose Admin Acetaminophen 650 mg 08/11/20 20:19 08/16/20 00:42 Acetaminophen 325 Mg Tab PO 650 mg Q4H PRN Administration Headache/Fever/Mild Pain (1-3) Anastrozole 1 mg 08/13/20 09:00 08/16/20 09:29 Anastrozole 1 Mg Tab PO 1 mg DAILY KEISHA Administration Apixaban 2.5 mg 08/12/20 21:00 08/16/20 09:29 Apixaban 2.5 Mg Tab PO 2.5 mg BID KEISHA Administration Dexamethasone 6 mg 08/13/20 08:00 08/16/20 09:29 Dexamethasone 4 Mg Tab PO 6 mg QAM-WM KEISHA Administration Diltiazem HCl 180 mg 08/14/20 12:00 08/16/20 11:08 Diltiazem Hcl Cd 180 Mg Capsule PO 180 mg 1200 KEISHA Administration Guaifenesin/Dextromethorphan 15 ml 08/14/20 23:21 08/16/20 11:53 Guaifenesin Dm 100-10/5 Ml Udcup PO 15 ml Q4H PRN Administration Cough Sodium Chloride 1,000 mls @ 100 mls/hr 08/11/20 23:15 08/16/20 05:05 Normal Saline 0.9% IV 1,000 mls .Q10H KEISHA Administration Aztreonam 1 gm/ Sodium 100 mls @ 100 mls/hr 08/13/20 12:00 08/16/20 11:08 Chloride IVPB 100 mls 0000,1200 KEISHA Administration Levothyroxine Sodium 50 mcg 08/14/20 06:00 08/16/20 05:05 Levothyroxine Sodium 50 Mcg Tab PO 50 mcg 0600 KEISHA Administration Sodium Chloride 10 ml 08/12/20 21:00 08/15/20 19:45 Flush - Normal Saline 10 Ml Syringe IVF 10 ml Q12HR KEISHA Administration - Exam General Appearance: awake alert, ill appearing Eye: PERRL, anicteric sclera ENT: normocephalic atraumatic, no oropharyngeal lesions, moist mucosa Neck: supple, symmetric, no JVD, no thyromegaly, no lymphadenopathy Heart: RRR, no murmur, no gallops, no rubs, normal peripheral pulses Respiratory: CTAB, no wheezes, no rales, no ronchi, normal chest expansion Gastrointestinal: soft, non-tender, non-distended, normal bowel sounds Neurological: cranial nerve grossly intact Psychiatric: normal affect, normal behavior, A&O x 3 Hosp A/P (1) UTI (urinary tract infection) Status: Acute Qualifiers: Urinary tract infection type: acute cystitis Hematuria presence: with hematuria Qualified Code(s): N30.01 - Acute cystitis with hematuria (2) Pneumonia due to COVID-19 virus Code(s): U07.1 - COVID-19; J12.89 - OTHER VIRAL PNEUMONIA Status: Acute (3) Atrial fibrillation/flutter Code(s): I48.91 - UNSPECIFIED ATRIAL FIBRILLATION; I48.92 - UNSPECIFIED ATRIAL FLUTTER Status: Acute - Plan #1. Acute COVID-19 pneumonia. She is on supportive care with steroids and vitamin C. She is not a candidate for remdesivir and convalescent plasma. 2. Acute hypoxic respiratory failure Continue O2 via nasal cannula. 3. UTI. Urine cultures growing gram-negative rods. I am going to switch her antibiotic to Azactam which would also cover for the pneumonia. 4. Atrial flutter. Cardiology evaluation is appreciated. She is on anticoagulation and rate control medications.
[2020-08-17] MEDS: Aztreonam 1 GM in Sodium Chloride 0.9% 100 ML IVPB SCH (00:20)
[2020-08-17] MEDS: Levothyroxine Sodium 50 MCG TAB PO SCH (04:55)
[2020-08-17 05:19] LABS: #Lymphocytes 0.7 thou/uL (1.20-3.40); #Monocytes 0.3 thou/uL (0.11-0.59); #Neutrophils 3.8 thou/uL (1.40-6.50); %Basophils 0.3 % (0.0-1.0); %Eosinophils 0.7 % (0.0-10.0); %Lymphocytes 14.2 % (21.0-51.0); %Monocytes 5.3 % (0.0-10.0); %Neutrophils 79.5 % (42.0-75.0); Hemoglobin 9.8 g/dL (12.0-16.0); Mean Corpuscular HGB CONC 31.6 g/dL (32.0-36.0); Mean Corpuscular Hemoglobin 29.8 pg (27.0-31.0); Mean Corpuscular Volume 94.5 fL (78.0-98.0); Mean Platelet Volume 7.9 fL (7.4-10.4); Platelet Count 335 thou/uL (130-400); RBC Distribution Width 14.5 % (11.5-14.5); Red Blood Cell (RBC) Count 3.28 mill/uL (4.20-5.40); White Blood Cell (WBC) Count 4.8 thou/uL (4.8-10.8)
[2020-08-17 05:33] LABS: Anion Gap 13 mmol/L (10-20); BUN (Urea Nitrogen) 20 mg/dL (9.8-20.1); Calc. Creatinine Clearance 46 mL/min (70-130); Calcium 7.7 mg/dL (7.8-10.44); Carbon Dioxide 24 mmol/L (23-31); Chloride 108 mmol/L (98-107); Glucose 151 mg/dL (83-110); Potassium 3.2 mmol/L (3.5-5.1); Sodium 142 mmol/L (136-145)
[2020-08-17] MEDS: Sodium Chloride 0.9% 1,000 ML IV SCH (07:11)
--- NOTE | 2020-08-17 07:48 | RAD ---
Chest AP view INDICATION: Pneumonia and shortness of breath COMPARISON: Prior exam dated August 11, 2020 FINDINGS: Lungs: There is airspace disease in the right upper lobe and left lower lobe suspicious for worsenin g pneumonia Cardiac silhouette: The cardiomediastinal silhouette appears within normal limits. Pulmonary vasculature: Normal Pleural spaces: No pleural effusion or pneumothorax is demonstrated. Upper abdomen: No abnormality seen. Osseous structures: No acute osseous abnormality. Additional findings: None. IMPRESSION: Worsening pneumonia
[2020-08-17] MEDS: Dexamethasone 4 MG TAB PO SCH (07:51)
[2020-08-17] MEDS: Apixaban 2.5 MG TAB PO SCH ×2 (07:52→20:22)
[2020-08-17] MEDS: Anastrozole 1 MG TAB PO SCH (07:52)
[2020-08-17] MEDS: Famotidine 20 MG TAB PO SCH (07:53)
--- NOTE | 2020-08-17 14:45 | PDOC.HOSPP ---
- Subjective Encounter Date: 08/17/20 Encounter Time: 13:00 Subjective: has sob but better is ambulating with PT in the room - Objective Vital Signs & Weight: Vital Signs (12 hours) Temp Pulse Resp BP Pulse Ox 08/17/20 11:09 97.9 F 86 20 145/72 H 100 08/17/20 08:00 98.4 F 75 20 131/73 100 08/17/20 03:05 97.7 F 81 20 139/68 100 Weight Admit Weight 144 lb 8 oz Weight 144 lb 8 oz I&O: 08/16/20 08/17/20 08/18/20 06:59 06:59 06:59 Intake Total 980 2250 350 Output Total 1150 1220 300 Balance -170 1030 50 Result Diagrams: 08/17/20 04:59 08/17/20 04:59 Hospitalist ROS - Medication Medications: Active Medications Generic Name Dose Route Start Last Admin Trade Name Freq PRN Reason Stop Dose Admin Acetaminophen 650 mg 08/11/20 20:19 08/16/20 20:12 Acetaminophen 325 Mg Tab PO 650 mg Q4H PRN Administration Headache/Fever/Mild Pain (1-3) Anastrozole 1 mg 08/13/20 09:00 08/17/20 07:52 Anastrozole 1 Mg Tab PO 1 mg DAILY KEISHA Administration Apixaban 2.5 mg 08/12/20 21:00 08/17/20 07:52 Apixaban 2.5 Mg Tab PO 2.5 mg BID KEISHA Administration Dexamethasone 6 mg 08/13/20 08:00 08/17/20 07:51 Dexamethasone 4 Mg Tab PO 6 mg QAM-WM KEISHA Administration Diltiazem HCl 180 mg 08/14/20 12:00 08/17/20 10:48 Diltiazem Hcl Cd 180 Mg Capsule PO 180 mg 1200 KEISHA Administration Famotidine 20 mg 08/17/20 09:00 08/17/20 07:53 Famotidine 20 Mg Tab PO 20 mg DAILY KEISHA Administration Guaifenesin/Dextromethorphan 15 ml 08/14/20 23:21 08/16/20 11:53 Guaifenesin Dm 100-10/5 Ml Udcup PO 15 ml Q4H PRN Administration Cough Sodium Chloride 1,000 mls @ 100 mls/hr 08/11/20 23:15 08/17/20 07:11 Normal Saline 0.9% IV 1,000 mls .Q10H KEISHA Administration Levothyroxine Sodium 50 mcg 08/14/20 06:00 08/17/20 04:55 Levothyroxine Sodium 50 Mcg Tab PO 50 mcg 0600 KEISHA Administration Sodium Chloride 10 ml 08/12/20 21:00 08/17/20 07:53 Flush - Normal Saline 10 Ml Syringe IVF Not Given Q12HR KEISHA - Exam General Appearance: awake alert Eye: PERRL, anicteric sclera ENT: no oropharyngeal lesions, moist mucosa Neck: supple, no JVD Heart: RRR, no murmur Respiratory: no wheezes, rales, rhonchi Gastrointestinal: soft, non-tender, non-distended, normal bowel sounds Extremities: no cyanosis, no edema Neurological: cranial nerve grossly intact, no focal deficits Psychiatric: A&O x 3 Hosp A/P (1) Pneumonia due to COVID-19 virus Code(s): U07.1 - COVID-19; J12.89 - OTHER VIRAL PNEUMONIA Status: Acute (2) SATURNINO (acute kidney injury) Code(s): N17.9 - ACUTE KIDNEY FAILURE, UNSPECIFIED Status: Resolved (3) Atrial fibrillation/flutter Code(s): I48.91 - UNSPECIFIED ATRIAL FIBRILLATION; I48.92 - UNSPECIFIED ATRIAL FLUTTER Status: Chronic (4) Fall Code(s): W19.XXXA - UNSPECIFIED FALL, INITIAL ENCOUNTER Status: Resolved Qualifiers: Encounter type: subsequent encounter Qualified Code(s): W19.XXXD - Unspecified fall, subsequent encounter (5) Hypothyroidism Code(s): E03.9 - HYPOTHYROIDISM, UNSPECIFIED Status: Chronic Qualifiers: Hypothyroidism type: acquired Qualified Code(s): E03.9 - Hypothyroidism, unspecified (6) UTI (urinary tract infection) Status: Acute Qualifiers: Urinary tract infection type: acute cystitis Hematuria presence: without hematuria Qualified Code(s): N30.00 - Acute cystitis without hematuria - Plan is on dexamethasone, eliquis, cardizem cd 180mg, synthroid, arimidex levaquin based on cultures for uti has ambulated around 140ft with PT [facility] [place] [facility], had covid symptoms for around 2 weeks d/w Ms.Christy Verduzco [phone] (aunt's daughter her locally, they are in home quarantine now)
[2020-08-17] MEDS: Albuterol 200 PUFF (6.7GM INHALER) INH SCH (20:22)
[2020-08-18] MEDS: Albuterol 200 PUFF (6.7GM INHALER) INH SCH ×4 (01:28→21:10)
[2020-08-18] MEDS: Guaifenesin DM 100-10/5 ML UDCUP PO PRN (01:29)
[2020-08-18] MEDS: Levothyroxine Sodium 50 MCG TAB PO SCH (05:01)
[2020-08-18 05:18] LABS: Hemoglobin 10.1 g/dL (12.0-16.0); Platelet Count 343 thou/uL (130-400)
[2020-08-18] MEDS: Famotidine 20 MG TAB PO SCH (09:57)
[2020-08-18] MEDS: Dexamethasone 4 MG TAB PO SCH (09:57)
[2020-08-18] MEDS: Anastrozole 1 MG TAB PO SCH (09:57)
[2020-08-18] MEDS: Apixaban 2.5 MG TAB PO SCH ×2 (12:26→21:11)
--- NOTE | 2020-08-18 12:32 | PDOC.HOSPP ---
- Subjective Encounter Date: 08/18/20 Encounter Time: 11:15 Subjective: no sob, feels better no c/o chest pain or palpitations is ambulating in room with PT - Objective Vital Signs & Weight: Vital Signs (12 hours) Temp Pulse Resp BP BP Pulse Ox 08/18/20 08:09 96.2 F L 90 24 H 137/81 94 L 08/18/20 05:10 98.4 F 83 22 H 138/83 100 Weight Admit Weight 144 lb 8 oz Weight 144 lb 8 oz I&O: 08/17/20 08/18/20 08/19/20 06:59 06:59 06:59 Intake Total 2250 1250 Output Total 1220 1950 Balance 1030 -700 Result Diagrams: 08/18/20 04:56 08/18/20 04:56 Hospitalist ROS - Medication Medications: Active Medications Generic Name Dose Route Start Last Admin Trade Name Freq PRN Reason Stop Dose Admin Acetaminophen 650 mg 08/11/20 20:19 08/16/20 20:12 Acetaminophen 325 Mg Tab PO 650 mg Q4H PRN Administration Headache/Fever/Mild Pain (1-3) Albuterol Sulfate 2 puff 08/17/20 19:00 08/18/20 05:00 Albuterol 200 Puff (6.7gm Inhaler) INH 2 puff [id number] KEISHA Administration Anastrozole 1 mg 08/13/20 09:00 08/18/20 09:57 Anastrozole 1 Mg Tab PO 1 mg DAILY KEISHA Administration Apixaban 2.5 mg 08/12/20 21:00 08/18/20 12:26 Apixaban 2.5 Mg Tab PO 2.5 mg BID KEISHA Administration Dexamethasone 6 mg 08/13/20 08:00 08/18/20 09:57 Dexamethasone 4 Mg Tab PO 6 mg QAM-WM KEISHA Administration Diltiazem HCl 180 mg 08/14/20 12:00 08/18/20 12:26 Diltiazem Hcl Cd 180 Mg Capsule PO 180 mg 1200 KEISHA Administration Famotidine 20 mg 08/17/20 09:00 08/18/20 09:57 Famotidine 20 Mg Tab PO 20 mg DAILY KEISHA Administration Guaifenesin/Dextromethorphan 15 ml 08/14/20 23:21 08/18/20 01:29 Guaifenesin Dm 100-10/5 Ml Udcup PO 15 ml Q4H PRN Administration Cough Levofloxacin 500 mg 08/18/20 06:00 08/18/20 05:01 Levofloxacin 500 Mg Tab PO 500 mg 0600 KEISHA Administration Levothyroxine Sodium 50 mcg 08/14/20 06:00 08/18/20 05:01 Levothyroxine Sodium 50 Mcg Tab PO 50 mcg 0600 KEISHA Administration Sodium Chloride 10 ml 08/12/20 21:00 08/17/20 20:22 Flush - Normal Saline 10 Ml Syringe IVF 10 ml Q12HR KEISHA Administration - Exam General Appearance: awake alert Eye: PERRL, anicteric sclera ENT: no oropharyngeal lesions, moist mucosa Neck: supple, no JVD Heart: RRR, no murmur Respiratory: no wheezes, rales, rhonchi Gastrointestinal: soft, non-tender, non-distended, normal bowel sounds Extremities: no cyanosis, no edema Neurological: cranial nerve grossly intact, no focal deficits Hosp A/P (1) Pneumonia due to COVID-19 virus Code(s): U07.1 - COVID-19; J12.89 - OTHER VIRAL PNEUMONIA Status: Acute (2) Acute respiratory failure with hypoxia Code(s): J96.01 - ACUTE RESPIRATORY FAILURE WITH HYPOXIA Status: Acute (3) SATURNINO (acute kidney injury) Code(s): N17.9 - ACUTE KIDNEY FAILURE, UNSPECIFIED Status: Resolved (4) Atrial fibrillation/flutter Code(s): I48.91 - UNSPECIFIED ATRIAL FIBRILLATION; I48.92 - UNSPECIFIED ATRIAL FLUTTER Status: Chronic (5) Fall Code(s): W19.XXXA - UNSPECIFIED FALL, INITIAL ENCOUNTER Status: Resolved Qualifiers: Encounter type: subsequent encounter Qualified Code(s): W19.XXXD - Unspecified fall, subsequent encounter (6) Hypothyroidism Code(s): E03.9 - HYPOTHYROIDISM, UNSPECIFIED Status: Chronic Qualifiers: Hypothyroidism type: acquired Qualified Code(s): E03.9 - Hypothyroidism, unspecified (7) UTI (urinary tract infection) Status: Acute Qualifiers: Urinary tract infection type: acute cystitis Hematuria presence: without hematuria Qualified Code(s): N30.00 - Acute cystitis without hematuria - Plan is on dexamethasone, eliquis, cardizem cd 180mg, synthroid, arimidex levaquin based on cultures for uti x 2 days and dc has ambulated around 140ft with PT she came from [place] to bury her aunt, had covid symptoms for around 2 weeks d/w Ms.Christy Verduzco [phone] (aunt's daughter here locally, they are in home quarantine now) will likely need swing bed x 7 days or HH with PT, patient is elderly and lives alone, has severe covid pna
[2020-08-18] MEDS ORDERED: Potassium Chloride 20 MEQ TAB PO SCH (20:15)
[2020-08-19] MEDS: Albuterol 200 PUFF (6.7GM INHALER) INH SCH ×3 (02:18→13:21)
[2020-08-19] MEDS: Levothyroxine Sodium 50 MCG TAB PO SCH (05:04)
[2020-08-19 06:11] LABS: Anion Gap 13 mmol/L (10-20); BUN (Urea Nitrogen) 24 mg/dL (9.8-20.1); Calc. Creatinine Clearance 42 mL/min (70-130); Calcium 8.2 mg/dL (7.8-10.44); Carbon Dioxide 27 mmol/L (23-31); Chloride 106 mmol/L (98-107); Glucose 109 mg/dL (83-110); Potassium 3.9 mmol/L (3.5-5.1); Sodium 142 mmol/L (136-145)
[2020-08-19] MEDS: Dexamethasone 4 MG TAB PO SCH (09:01)
[2020-08-19] MEDS: Anastrozole 1 MG TAB PO SCH (09:03)
[2020-08-19] MEDS: Apixaban 2.5 MG TAB PO SCH (09:03)
[2020-08-19 13:38] VITALS: BP 152/88; TEMP 99
--- NOTE | 2020-08-19 13:41 | PDOC.HOSPP ---
- Subjective Encounter Date: 08/19/20 Encounter Time: 11:30 Subjective: no sob, feels better on nasal canula O2 - Objective Vital Signs & Weight: Vital Signs (12 hours) Temp Pulse Resp BP Pulse Ox 08/19/20 12:00 99.0 F 80 20 152/88 H 100 08/19/20 09:00 97.5 F L 84 20 140/77 100 08/19/20 08:00 100 08/19/20 04:45 98.4 F 73 21 H 134/78 100 Weight Admit Weight 144 lb 8 oz Weight 144 lb 8 oz I&O: 08/18/20 08/19/20 08/20/20 06:59 06:59 06:59 Intake Total 1250 500 Output Total 1950 1300 Balance -700 -800 Result Diagrams: 08/18/20 04:56 08/19/20 05:25 Hospitalist ROS - Medication Medications: Active Medications Generic Name Dose Route Start Last Admin Trade Name Freq PRN Reason Stop Dose Admin Acetaminophen 650 mg 08/11/20 20:19 08/16/20 20:12 Acetaminophen 325 Mg Tab PO 650 mg Q4H PRN Administration Headache/Fever/Mild Pain (1-3) Albuterol Sulfate 2 puff 08/17/20 19:00 08/19/20 13:21 Albuterol 200 Puff (6.7gm Inhaler) INH 2 puff [id number] KEISHA Administration Anastrozole 1 mg 08/13/20 09:00 08/19/20 09:03 Anastrozole 1 Mg Tab PO 1 mg DAILY KEISHA Administration Apixaban 2.5 mg 08/12/20 21:00 08/19/20 09:03 Apixaban 2.5 Mg Tab PO 2.5 mg BID KEISHA Administration Dexamethasone 6 mg 08/13/20 08:00 08/19/20 09:01 Dexamethasone 4 Mg Tab PO 6 mg QAM-WM KEISHA Administration Diltiazem HCl 180 mg 08/14/20 12:00 08/19/20 13:21 Diltiazem Hcl Cd 180 Mg Capsule PO 180 mg 1200 KEISHA Administration Guaifenesin/Dextromethorphan 15 ml 08/14/20 23:21 08/18/20 01:29 Guaifenesin Dm 100-10/5 Ml Udcup PO 15 ml Q4H PRN Administration Cough Levofloxacin 500 mg 08/18/20 06:00 08/19/20 05:04 Levofloxacin 500 Mg Tab PO 500 mg 00 KEISHA Administration Levothyroxine Sodium 50 mcg 08/14/20 06:00 08/19/20 05:04 Levothyroxine Sodium 50 Mcg Tab PO 50 mcg 0600 KEISHA Administration Pantoprazole Sodium 40 mg 08/19/20 09:00 08/19/20 09:03 Pantoprazole 40 Mg Tab PO 40 mg DAILY KEISHA Administration Sodium Chloride 10 ml 08/12/20 21:00 08/19/20 09:03 Flush - Normal Saline 10 Ml Syringe IVF 10 ml Q12HR KEISHA Administration - Exam General Appearance: awake alert Eye: PERRL, anicteric sclera ENT: no oropharyngeal lesions, moist mucosa Neck: supple, no JVD Heart: RRR, no murmur Respiratory: no wheezes, rales, rhonchi Gastrointestinal: soft, non-tender, non-distended, normal bowel sounds Extremities: no cyanosis, no edema Neurological: cranial nerve grossly intact, no focal deficits Hosp A/P (1) Pneumonia due to COVID-19 virus Code(s): U07.1 - COVID-19; J12.89 - OTHER VIRAL PNEUMONIA Status: Acute (2) Acute respiratory failure with hypoxia Code(s): J96.01 - ACUTE RESPIRATORY FAILURE WITH HYPOXIA Status: Acute (3) SATURNINO (acute kidney injury) Code(s): N17.9 - ACUTE KIDNEY FAILURE, UNSPECIFIED Status: Resolved (4) Atrial fibrillation/flutter Code(s): I48.91 - UNSPECIFIED ATRIAL FIBRILLATION; I48.92 - UNSPECIFIED ATRIAL FLUTTER Status: Chronic (5) Fall Code(s): W19.XXXA - UNSPECIFIED FALL, INITIAL ENCOUNTER Status: Resolved Qualifiers: Encounter type: subsequent encounter Qualified Code(s): W19.XXXD - Unspecified fall, subsequent encounter (6) Hypothyroidism Code(s): E03.9 - HYPOTHYROIDISM, UNSPECIFIED Status: Chronic Qualifiers: Hypothyroidism type: acquired Qualified Code(s): E03.9 - Hypothyroidism, unspecified (7) UTI (urinary tract infection) Status: Acute Qualifiers: Urinary tract infection type: acute cystitis Hematuria presence: without hematuria Qualified Code(s): N30.00 - Acute cystitis without hematuria - Plan is on dexamethasone, eliquis, cardizem cd 180mg, synthroid, arimidex levaquin based on cultures for uti, will dc in am. has ambulated around 140ft with PT she came from [place] to bury her aunt, had covid symptoms for around 2 weeks d/w Ms.Christy Verduzco [phone] (aunt's daughter here locally, they are in home quarantine now) will likely need swing bed x 7 days or HH with PT, patient is elderly and lives alone, has severe covid pna CM consultation for help with home situation?
--- NOTE | 2020-08-20 08:42 | DIS ---
DATE OF ADMISSION: 08/12/2020 DATE OF DISCHARGE: 08/19/2020 DISCHARGE DISPOSITION: To home with Home Health. PRIMARY DISCHARGE DIAGNOSES: 1. COVID-19 pneumonia. 2. Acute respiratory failure with hypoxia secondary to above. 3. Acute kidney injury, on admission, resolved. 4. Chronic atrial fibrillation in sinus rhythm. 5. History of mechanical fall with no fractures. 6. Hypothyroidism. 7. Urinary tract infection, on admission, resolved. PROCEDURES DONE DURING HOSPITALIZATION: Chest x-ray done on admission showed left basilar pneumonia. The patient had peripheral opacities suggestive of COVID-19 pneumonia. Right ankle three-view x-ray done showed no acute osseous abnormality. Left knee four-view x-ray done showed chondrocalcinosis and mild degenerative changes. No acute osseous abnormality. Blood cultures x2, no growth. Urine culture grew E coli sensitive to all antibiotics. H and H of 10 and 31, platelet count 343. D-dimer was 10.26 on admission. Discharge BUN and creatinine of 24 and 1.0. CRP 12.1. Total cholesterol 130, triglycerides 120, LDL 75, and HDL 31. Albumin 3.7. TSH 3.5. BNP less than 10. COVID-19 PCR was detected on 08/11/2020. Influenza A and B PCRs were negative. INPATIENT CONSULT: Dr. Hollingsworth for Infectious Disease. DISCHARGE MEDICATION: 1. Anastrozole 1 mg p.o. daily. 2. Flexeril 5 mg p.o. at bedtime. 3. Metformin 500 mg p.o. q.a.m. 4. Levothyroxine 50 mcg p.o. daily. 5. Cardizem CD 180 mg p.o. daily. 6. DuoNeb 4 times daily p.r.n. 7. Dexamethasone 6 mg p.o. daily for another 4 days. 8. Protonix 40 mg p.o. daily. ALLERGIES: ALLERGIC TO PENICILLIN AND STREPTOMYCIN. DISCHARGE PLAN: The patient to follow up with Dr. Stella Heck, primary care physician tomorrow at 4:15 . BRIEF COURSE DURING HOSPITALIZATION: The patient initially got admitted on the after she had a mechanical fall with generalized weakness. Initial workup revealed bilateral infiltrates and her COVID-19 PCR came back positive. The patient also was hypoxic on arrival. She was placed on 2 L nasal cannula and has responded well. The patient's initial creatinine was 1.9 and was not a candidate for remdesivir. She was placed on steroids, albuterol inhaler along with home medication. The patient had initial atrial fibrillation with RVR, which got controlled with oral Cardizem. Prior to which the patient was on Cardizem drip, which was tapered and discontinued. She is hemodynamically stable. The patient has ambulated nearly 140 feet with physical therapy. Her saturations are 100% on 1 to 2 L nasal cannula. The patient had a repeat chest x-ray done, which showed infiltrates. The patient will require home oxygen due to COVID-19 infiltrates and exertional hypoxia. The patient is also 80 years old and is a bit deconditioned and lives alone. In view of this, Home Health with Physical Therapy will be arranged. The patient will follow up with Dr. Stella Heck, primary care physician tomorrow at 4:15 via Zoom meeting. Please see a [id number] documentation for the day of discharge on [facility]. Home oxygen has been arranged. Case Management is working on setting up Home Health with followup with her primary care physician tomorrow. Job ID: [id number]
== END 2020-08-19 16:55 | disposition home health service (06) | DRG 177 ==
LOC: ERS 17:18 → ERHOLD 21:14 → 2SW 23:49 → OBSVTOIN 08-12 16:29
PROVIDERS: ADMIT Internal Medicine; ATTEND Internal Medicine
PROC: 8E0ZXY6 Isolation (ICD-10-PCS; principal; 2020-08-12)
DX: U07.1 COVID-19 (principal); J18.9 Pneumonia, unspecified organism; I21.A1 Myocardial infarction type 2; J12.89 Other viral pneumonia; J96.01 Acute respiratory failure with hypoxia; I48.92 Unspecified atrial flutter; N17.9 Acute kidney failure, unspecified; N30.01 Acute cystitis with hematuria; J45.909 Unspecified asthma, uncomplicated; M25.571 Pain in right ankle and joints of right foot; M25.562 Pain in left knee; H40.9 Unspecified glaucoma; Z79.899 Other long term (current) drug therapy; Z88.0 Allergy status to penicillin; Z88.1 Allergy status to other antibiotic agents; Z90.710 Acquired absence of both cervix and uterus; Z85.3 Personal history of malignant neoplasm of breast; Z79.84 Long term (current) use of oral hypoglycemic drugs; Z79.890 Hormone replacement therapy; Z87.891 Personal history of nicotine dependence; W19.XXXA Unspecified fall, initial encounter; T79.6XXA Traumatic ischemia of muscle, initial encounter; E03.9 Hypothyroidism, unspecified
CPT/HCPCS: 0240U; 36415; 71045; 80048; 80053; 80061; 81003; 81015; 82550; 82565; 83605; 83880; 84443; 84484; 85014; 85018; 85025; 85049; 85379; 85520; 85610; 85730; 86140; 87040; 87070; 87077; 87086; 87186; 87205; 93005; 94760; 96365; 96366; 96367; 96372; 96375; 96376; G0378; J0153; J0282; J1650; J3490; J7070; J8540